=== PATIENT | female | born 1955 | race Caucasian/White ===

== ENCOUNTER 2017-05-06 10:51 | Inpatient (IN) | payer OTHER ==
[~2017-05-06] VITALS: Ht 160 cm; Wt 71.5 kg
[~2017-05-06 10:51] MED LIST: ALBU8.5H3 INH; ALPR0.254 PO; ASPI81TA3 PO; ATOR10TA65 PO; AZIT250T94 PO; BACL10TA PO; BISA10SU75 PR; CETI10CA PO; DOCU-159 PO; HYDR-906 PO; IBUP-1542 PO; OXYC-183 PO; OXYC-209 PO; OXYC-281 PO; OXYC-283 PO; SENN-31 PO; SENN-53 PO; UDROBDM PO
[2017-05-06] MEDS ORDERED: ASPIRIN 325 MG TAB PO STA (14:21)
[2017-05-06 15:04] LABS: BASOPHILS % 0.4 % (0.0-2.0); EOSINOPHILS # 0.2 10^3/ul (0.0-0.5); EOSINOPHILS % 1.8 % (0.0-7.0); HEMATOCRIT 45.8 % (37.0-47.0); HEMOGLOBIN 15.5 g/dl (12.0-16.0); LYMPHOCYTES # 2.1 10^3/ul (0.8-2.9); LYMPHOCYTES % 24.8 % (15.0-51.0); MEAN CORPUSCULAR HEMOGLOBIN 34.4 pg (29.0-33.0); MEAN CORPUSCULAR HGB CONC 33.8 g/dl (32.0-37.0); MEAN CORPUSCULAR VOLUME 101.6 fl (82.0-101.0); MEAN PLATELET VOLUME 9.7 fl (7.4-10.4); MONOCYTE # 0.4 10^3/ul (0.3-0.9); MONOCYTES % 5.2 % (0.0-11.0); NEUTROPHILS % 67.6 % (39.0-77.0); PLATELET COUNT 194 10^3/UL (140-415); RED BLOOD COUNT 4.51 10^6/ul (4.20-5.40); WHITE BLOOD COUNT 8.4 10^3/ul (4.8-10.8)
[2017-05-06 15:23] LABS: CALCIUM 9.1 mg/dl (8.4-10.2); CREATININE 1.02 mg/dl (0.44-1.00); POTASSIUM 5.2 mmol/L (3.5-5.1)
[2017-05-06 15:35] LABS: TROPONIN-I 0.013 ng/ml (0.00-0.12)
[2017-05-06] MEDS ORDERED: KETOROLAC 30 MG INJ IV STA (15:46)
--- NOTE | 2017-05-06 16:12 | RADRPT ---
PROCEDURE: XR Chest. CLINICAL INDICATION: Chest pain TECHNIQUE: AP view of the chest was obtained. COMPARISON: 02/27/2016 FINDINGS: There are atherosclerotic calcifications of the thoracic aorta. The cardiomediastinal silhouette i s within normal limits. No consolidation or pulmonary edema is identified. Nodular opacity again id entified at the left lung base measuring up to 10 mm, without significant change. No pleural effusi on or pneumothorax is identified. IMPRESSION: No evidence of acute cardiopulmonary disease. 10 mm nodular opacity at the left lung base, without significant change. Again, further evaluation be performed with CT. RPTAT: VV .Sandeep Payan MD, MD Date Time Electronically viewed and signed by .Sandeep Payan MD, on 05/06/2017 16:11 .O/
[2017-05-06] MEDS ORDERED: QUET50TA16 PO (16:29)
[2017-05-06] MEDS ORDERED: ALPR2TAB PO (16:29)
--- NOTE | 2017-05-06 16:48 | ERA ---
ER Documentation Chief Complaint Date/Time DATE: 05/06/17 TIME: 16:41 Chief Complaint back of l. shoulder pain rad into lue and chest, sob HPI This is a 61-year-old female with a history of anxiety, chronic sciatic lumbar back pain status post laminectomy, currently ambulatory with walker who is presenting with epigastric pain in conjunction with left paraspinal pain radiating down her left arm into the dorsum of her left hand. She does not endorse any trauma or injury to her neck or arm. She does put groceries away at home, but she does not endorse any heavy lifting. She does feel little anxious about being here, but she does not endorse left sided or midsternal chest pain or trouble breathing. She does not feel sick. She has no fever or chills. She has no headache or vision changes. She does endorse indigestion in the epigastrium since last night. She has had no changes to bowel movements or urination. She has had no focal deficits. ROS All systems reviewed and are negative except as per history of present illness. Medications Home Meds Reported Medications Alprazolam* (Xanax*) 2 Mg Tablet, 2 MG PO BID Y for ANXIETY, TAB 05/06/17 Quetiapine Fumarate* (Seroquel*) 50 Mg Tablet, 50 MG PO DAILY, TAB 05/06/17 Discontinued Reported Medications Sennosides* (Senna Lax*) 8.6 Mg Tablet, 2 TAB PO DAILY, TAB 02/27/16 Oxycodone Hcl-Acetaminophen* (Oxycodone Hcl-Acetaminophen*) 10-325 Mg Tablet, 2 TAB PO Q4H Y for PAIN LEVEL 6-10, TAB 02/27/16 Sennosides-Docusate Sodium ([place]el[place]-Colace) 50-8.6 Mg Tablet, 2 TAB PO DAILY Y for CONSTIPATION, TAB 02/27/16 Docusate Sodium* (Docusate Sodium*) 100 Mg Capsule, 100 MG PO DAILY, #30 CAP 02/27/16 Bisacodyl* (Bisacodyl*) 10 Mg Supp, 10 MG [place] Q24H for CONSTIPATION, SUPP 02/27/16 Baclofen* (Baclofen*) 10 Mg Tablet, 10 MG PO TID, TAB 02/27/16 Alprazolam* (Alprazolam*) 0.25 Mg Tablet, 0.5 MG PO TID Y for ANXIETY, TAB 02/27/16 Discontinued Scripts Hydrocodone/Acetaminophen ([place] 5-325 Tablet) 1 Each Tablet, 1 TAB PO Q6H Y for PAIN, #7 TAB Prov:BENNETT WERNER PA-C 08/13/16 Guaifenesin-Dextromethorphan* (Robitussin* DM) 100MG/10MG/5ML Syrup, 10 ML PO Q6H Y for COUGH for 5 Days, ML Prov:BENNETT WERNER PA-C 08/13/16 Cetirizine Hcl* (Zyrtec*) 10 Mg Capsule, 10 MG PO DAILY, #14 TAB.CHEW Prov:BENNETT WERNER PA-C 08/13/16 Albuterol Sulfate* (Proair HFA*) 8.5 Gm Hfa.aer.ad, 2 PUFF INH Q4, #1 INHALER Prov:BENNETT WERNER PA-C 08/13/16 Azithromycin* (Zithromax*) 250 Mg Tablet, 250 MG PO .ZPACK DIRECTED, #6 TAB TAKE 500 MG (2 TABS) THE FIRST DAY THEN 250 MG (1 TAB) DAYS 2-5 Prov:BENNETT WERNER PA-C 08/13/16 Oxycodone HCl/Acetaminophen (Percocet 10-325 mg Tablet) 1 Each Tablet, 1 EACH PO BID, #15 TAB Prov:BRANDI RODRÍGUEZ PA-C 05/04/16 Ibuprofen* (Motrin*) 600 Mg Tab, 600 MG PO Q6H Y for PAIN AND OR ELEVATED TEMP, #30 TAB Prov:SOBIA RODRIGUEZ NP 04/23/16 Oxycodone Hcl-Acetaminophen* (Percocet*) 7.5-325 Mg Tablet, 1 TAB PO Q4H Y for SEVERE PAIN LEVEL 7-10, #20 TAB Prov:SOBIA RODRIGUEZ NP 04/23/16 Oxycodone Hcl-Acetaminophen* (Percocet*) 5-325 Mg Tablet, 1 TAB PO Q4H Y for PAIN, #10 TAB Prov:BRANDI RODRÍGUEZ PA-C 03/17/16 Atorvastatin Calcium (Atorvastatin Calcium) 10 Mg Tablet, 10 MG PO HS for 14 Days, TAB Prov:LEON MARTINEZ MD 03/01/16 Aspirin (Aspirin) 81 Mg Chew, 81 MG PO DAILY for 10 Days, TAB Prov:LEON MARTINEZ MD 03/01/16 Allergies Allergies: Coded Allergies: No Known Allergy (Unverified , 05/06/17) PMhx/Soc History of Surgery: Yes (LAMINECTOMY FEBRUARY 2016) Anesthesia Reaction: No Hx Neurological Disorder: No Hx Respiratory Disorders: Yes (COPD) Hx Cardiac Disorders: No Hx Psychiatric Problems: No Hx Miscellaneous Medical Probl: No ( pelvis fx, rib fx) Hx Alcohol Use: No Hx Substance Use: No Hx Tobacco Use: Yes Smoking Status: Current every day smoker Physical Exam Vitals Vital Signs Date Time Temp Pulse Resp B/P Pulse Ox O2 Delivery O2 Flow Rate FiO2 05/06/17 17:00 78 20 148/94 96 Room Air 05/06/17 14:45 79 20 115/89 94 05/06/17 10:53 98.4 84 20 128/84 94 Physical Exam Const: NAD Head: Atraumatic Eyes: Normal Conjunctiva ENT: Normal External Ears, Nose and Mouth. Neck: Full range of motion..~ No meningismus. Resp: Clear to auscultation bilaterally Cardio: Regular rate and rhythm, no murmurs Abd: Soft, non tender, non distended. Normal bowel sounds Skin: No petechiae or rashes Back: No midline or flank tenderness Ext: No cyanosis, or edema Neur: Awake and alert Psych: Anxious Result Diagram: 05/06/17 1445 05/06/17 1445 Results 24 hrs Laboratory Tests Test 05/06/17 14:45 White Blood Count 8.410^3/ul Red Blood Count 4.5110^6/ul Hemoglobin 15.5g/dl Hematocrit 45.8% Mean Corpuscular Volume 101.6fl Mean Corpuscular Hemoglobin 34.4pg Mean Corpuscular Hemoglobin Concent 33.8g/dl Red Cell Distribution Width 13.0% Platelet Count 48316^3/UL Mean Platelet Volume 9.7fl Neutrophils % 67.6% Lymphocytes % 24.8% Monocytes % 5.2% Eosinophils % 1.8% Basophils % 0.4% Nucleated Red Blood Cells % 0.0/100WBC Neutrophils # (Manual) 5.710^3/ul Lymphocytes # 2.110^3/ul Monocytes # 0.410^3/ul Eosinophils # 0.210^3/ul Basophils # 0.010^3/ul Nucleated Red Blood Cells # 0.010^3/ul Sodium Level 145mmol/L Potassium Level 5.2mmol/L Chloride Level 104mmol/L Carbon Dioxide Level 27mmol/L Anion Gap 19 Blood Urea Nitrogen 14mg/dl Creatinine 1.02mg/dl Glucose Level 89mg/dl Calcium Level 9.1mg/dl Troponin I 0.013ng/ml Current Medications Medications (Trade) Dose Ordered Sig/Chun Route PRN Reason Start Time Stop Time Status Last Admin Dose Admin Aspirin (Aspirin) 325 mg ONCE STAT PO 05/06/17 14:21 05/06/17 14:22 DC 05/06/17 14:39 Ketorolac Tromethamine (Toradol) 30 mg ONCE STAT IV 05/06/17 15:46 05/06/17 15:47 DC 05/06/17 16:26 Morphine Sulfate (morphine) 2 mg ONCE ONCE IV 05/06/17 17:30 05/06/17 17:31 DC 05/06/17 17:29 Procedures/MDM The patient's presenting with left shoulder and arm pain since yesterday. She does not endorse any trauma or injury or extra exertion. There is no historical evidence of a muscle strain. The patient does have a history of spinal stenosis, but not typically in her neck. This is a possibility, but it would be atypical to, I am as acutely as it did without an event. She could have tweaked it at night as a possibility. That said, the patient also endorses epigastric pain, and in her age group, there is a possibility of atypical chest pain. A cardiac workup will be performed. Patient's blood work was obtained and reviewed. The patient's CBC is unremarkable. The patient's BMP is likewise unremarkable. The patient's troponin is indeterminate at 0.013. Her chest xray was reviewed by the radiologist as follows: PROCEDURE: XR Chest. CLINICAL INDICATION: Chest pain TECHNIQUE: AP view of the chest was obtained. COMPARISON: 02/27/2016 FINDINGS: There are atherosclerotic calcifications of the thoracic aorta. The cardiomediastinal silhouette is within normal limits. No consolidation or pulmonary edema is identified. Nodular opacity again identified at the left lung base measuring up to 10 mm, without significant change. No pleural effusion or pneumothorax is identified. IMPRESSION: No evidence of acute cardiopulmonary disease. 10 mm nodular opacity at the left lung base, without significant change. Again, further evaluation be performed with CT. .Sandeep Payan MD, MD Date Time Electronically viewed and signed by .Sandeep Payan MD, on 05/06/2017 16:11 That said, the patient is also describing new epigastric pain radiating upwards. She is 61 with a history of heart attack in her father. She has nonspecific repolarization abnormalities on her EKG and her troponin is just above normal. I give her heart score at 4, which places her at moderate risk. She has never had a stress test before. I believe she would benefit from admission to the hospital for a chest pain workup. She will require serial troponins and EKGs and likely a stress test in the morning. She was given Toradol and fentanyl in the emergency department for her pain initially. After the indeterminate troponin, she was also given aspirin. Departure Diagnosis: Primary Impression: Shoulder pain Additional Impressions: Epigastric pain Nonspecific ST-T wave electrocardiographic changes Elevated troponin I level CHRISTOPHER HERNANDES MD May 06, 2017 16:48
[2017-05-06] MEDS ORDERED: morphine 2 MG INJ IV ONE (17:30)
[2017-05-06] MEDS ORDERED: ACETAMINOPHEN 325 MG TAB PO PRN (18:30)
[2017-05-06] MEDS ORDERED: ONDANSETRON 4 MG INJ IV PRN ×2 (18:30→21:00)
[2017-05-06 20:10] VITALS: Ht 160 cm; Wt 71.5 kg
[2017-05-06 20:39] VITALS: BP 138/86; RESP 18
[2017-05-06] MEDS: morphine 4 MG/ML VIAL IV PRN (20:56)
[2017-05-06] MEDS ORDERED: ALPRAZOLAM 1 MG TAB PO PRN (21:00)
[2017-05-06 21:39] VITALS: PULSE 60
[2017-05-06 23:02] LABS: CREATINE KINASE 40 IU/L (23-200)
[2017-05-06 23:15] LABS: CK-MB 0.67 ng/ml (0.0-2.4); TROPONIN-I < 0.012 ng/ml (0.00-0.12)
[2017-05-07] VITALS (12 sets, daily range): BP systolic 98–117; BP diastolic 53–65; PULSE 64–85; RESP 17–18
[2017-05-07] MEDS: HYDROCODONE/APAP (5/325) TAB PO PRN ×3 (00:23→15:49)
[2017-05-07] MEDS: morphine 4 MG/ML VIAL IV PRN ×5 (01:19→23:08)
[2017-05-07 02:49] LABS: CREATINE KINASE 45 IU/L (23-200)
[2017-05-07 03:02] LABS: CK-MB 0.82 ng/ml (0.0-2.4)
[2017-05-07 03:06] LABS: TROPONIN-I < 0.012 ng/ml (0.00-0.12)
--- NOTE | 2017-05-07 07:20 | HP ---
Date/Time of Note Date/Time of Note DATE: 05/07/17 TIME: 07:11 Assessment/Plan VTE Prophylaxis VTE Prophylaxis Intervention: SCD's Lines/Catheters [facility] Saline Lock Urinary Cath still in place: No Assessment/Plan Assessment/Plan 1. Chronic back pain -Patient has a history of laminectomy -Pain management 2. Right shoulder pain -This is radiating from her back pain. Suspecting any fracture or dislocation -Pain management 3. Mild CKD: Stable -Avoid nephrotoxins 4. Left lower lung nodules, measuring 10 mm -This is unchanged since last year. Will consider CT chest 5. Anxiety -We will give antianxiety medication as needed 6. Mild hypernatremia and hyperkalemia -Correct as needed HPI/ROS Admit Date/Time Admit Date/Time May 06, 2017 at 18:26 Hx of Present Illness This is a 61-year-old female with a history of COPD, anxiety, mild CKD, chronic back pain with a history of laminectomy who presented to the emergency department complaining of back pain with radiation to her right shoulder shoulder pain and epigastric abdominal pain. She also complains of back pain. Denied chest pain, shortness of breath, fever, chills, nausea/vomiting or diarrhea. Patient's main concern is pain management for her back pain which radiates to her shoulder area. She presented to the ER, vitals were stable. Labs shows a sodium of 145, potassium 5.2, creatinine 1.02. Chest x-ray shows a 10 mm nodular opacity in the left lung base without significant change from PS chest x-ray 2015. . PMH/Family/Social Social History Smoking Status: Current every day smoker Exam/Review of Systems Vital Signs Vitals Vital Signs Date Time Temp Pulse Resp B/P Pulse Ox O2 Delivery O2 Flow Rate FiO2 05/07/17 04:06 69 05/07/17 04:00 98.9 17 117/65 90 05/06/17 17:00 Room Air Intake and Output 05/06/17 05/06/17 05/07/17 15:00 23:00 07:00 Intake Total 700 ml Balance 700 ml Exam Constitutional: other (Patient seems agitated.) Head: atraumatic, normocephalic Eyes: EOMI, PERRL Respiratory: clear to auscultation, normal air movement Cardiovascular: nl pulses, regular rate and rhythm Gastrointestinal: soft, tender Musculoskeletal: other (Tenderness, right mid back) Labs Result Diagram: 05/06/17 1445 05/06/17 1445 Medications Medications Current Medications Alprazolam (Xanax) 2 mg BID PRN PO ANXIETY; Start 05/06/17 at 21:00 Quetiapine Fumarate (Seroquel) 50 mg DAILY PO ; Start 05/07/17 at 09:00 Morphine Sulfate (morphine) 4 mg Q4H PRN IV SEVERE PAIN LEVEL 7-10 Last administered on 05/07/17 05:44; Admin Dose 4 MG; Start 05/06/17 at 21:00 Ondansetron HCl (Zofran Inj) 4 mg Q6H PRN IV NAUSEA AND/OR VOMITING; Start at 21:00 Heparin Sodium (Porcine) (Heparin (5000 Units/0.5 ml)) 5,000 unit BID SC ; Start 05/07/17 at 09:00 Acetaminophen/ Hydrocodone Bitart ([place] (5/325)) 1 tab Q6H PRN PO PAIN LEVEL 4 -6 Last administered on 05/07/17 00:23; Admin Dose 1 TAB; Start 05/07/17 at 00: 30 SRAVAN GAUTHIER MD May 07, 2017 07:20
[2017-05-07 08:13] LABS: BASOPHILS % 0.3 % (0.0-2.0); EOSINOPHILS # 0.2 10^3/ul (0.0-0.5); EOSINOPHILS % 2.8 % (0.0-7.0); HEMOGLOBIN 14.2 g/dl (12.0-16.0); LYMPHOCYTES # 2.3 10^3/ul (0.8-2.9); LYMPHOCYTES % 36.9 % (15.0-51.0); MEAN CORPUSCULAR HEMOGLOBIN 33.7 pg (29.0-33.0); MEAN CORPUSCULAR VOLUME 102.1 fl (82.0-101.0); MEAN PLATELET VOLUME 9.5 fl (7.4-10.4); MONOCYTE # 0.3 10^3/ul (0.3-0.9); MONOCYTES % 5.5 % (0.0-11.0); NEUTROPHILS % 54.2 % (39.0-77.0); PLATELET COUNT 165 10^3/UL (140-415); RED BLOOD COUNT 4.21 10^6/ul (4.20-5.40); RED CELL DISTRIBUTION WIDTH 12.9 % (11.5-14.5); WHITE BLOOD COUNT 6.1 10^3/ul (4.8-10.8)
[2017-05-07] MEDS: QUETIAPINE 25 MG TAB PO SCH (08:46)
[2017-05-07] MEDS: HEPARIN 5,000 UNIT/0.5 ML VIAL SC SCH ×2 (08:51→20:39)
[2017-05-07 08:57] LABS: ALBUMIN/GLOBULIN RATIO 1.2; BILIRUBIN,INDIRECT 0.2 mg/dl (0-1.1); BILIRUBIN,TOTAL 0.2 mg/dl (0.2-1.3); CALCIUM 8.4 mg/dl (8.4-10.2); CREATININE 1.14 mg/dl (0.44-1.00); POTASSIUM 3.8 mmol/L (3.5-5.1); TOTAL PROTEIN 5.5 g/dl (6.1-8.1)
[2017-05-07] MEDS ORDERED: IBUPROFEN 800 MG TAB PO PRN (15:00)
--- NOTE | 2017-05-07 15:21 | PN ---
Date/Time of Note Date/Time of Note DATE: 05/07/17 TIME: 15:17 Assessment/Plan VTE Prophylaxis VTE Prophylaxis Intervention: LMWH Lines/Catheters IV Catheter Type (from Nrs): Saline Lock Urinary Cath still in place: No Assessment/Plan Chief Complaint/Hosp Course S- According to staff, good sleep w meds. when aroused from deep sleep, quick to ask for pain meds. O- vss PE No pallor JVD Regular no murmur rub gallop CTA B possibly mild tender to reproducible exam Benign No edema; slr 45 Assessment and plan 1. Atypical chest pain. Rule out ACS. Home 2. Chronic back pain. Obtain LS spine x-ray 3. Pain seeking behavior? 4. Tobacco abuse, offered patch 5. Pulmonary nodule. Continue surveillance. Repeat CT in 6 months Problems: Exam/Review of Systems Vital Signs Vitals Vital Signs Date Time Temp Pulse Resp B/P Pulse Ox O2 Delivery O2 Flow Rate FiO2 05/07/17 12:46 98.0 74 18 104/57 91 05/06/17 17:00 Room Air Intake and Output 05/06/17 05/06/17 05/07/17 14:59 22:59 06:59 Intake Total 700 ml Balance 700 ml Results Result Diagram: 05/07/17 0735 05/07/17 0735 Results 24 hrs Laboratory Tests Test 05/06/17 22:00 05/07/17 02:24 05/07/17 07:35 Creatine Kinase 40 45 Creatine Kinase Index 1.7 1.8 Creatinine Kinase MB (Mass) 0.67 0.82 Troponin I < 0.012 < 0.012 White Blood Count 6.1 # Red Blood Count 4.21 Hemoglobin 14.2 Hematocrit 43.0 Mean Corpuscular Volume 102.1 H Mean Corpuscular Hemoglobin 33.7 H Mean Corpuscular Hemoglobin Concent 33.0 Red Cell Distribution Width 12.9 Platelet Count 165 Mean Platelet Volume 9.5 Neutrophils % 54.2 Lymphocytes % 36.9 Monocytes % 5.5 Eosinophils % 2.8 Basophils % 0.3 Nucleated Red Blood Cells % 0.0 Neutrophils # (Manual) 3.3 Lymphocytes # 2.3 Monocytes # 0.3 Eosinophils # 0.2 Basophils # 0.0 Nucleated Red Blood Cells # 0.0 Sodium Level 144 Potassium Level 3.8 Chloride Level 105 Carbon Dioxide Level 27 Anion Gap 16 Blood Urea Nitrogen 17 Creatinine 1.14 H Glucose Level 93 Calcium Level 8.4 Total Bilirubin 0.2 Direct Bilirubin 0.00 Indirect Bilirubin 0.2 Aspartate Amino Transf (AST/SGOT) 19 Alanine Aminotransferase (ALT/SGPT) 24 Alkaline Phosphatase 68 Total Protein 5.5 L Albumin 3.0 L Globulin 2.50 Albumin/Globulin Ratio 1.20 Medications Medications Current Medications Alprazolam (Xanax) 2 mg BID PRN PO ANXIETY Last administered on 05/07/17 08:47 ; Admin Dose 2 MG; Start 05/06/17 at 21:00 Quetiapine Fumarate (Seroquel) 50 mg DAILY PO Last administered on 05/07/17 08 :46; Admin Dose 50 MG; Start 05/07/17 at 09:00 Morphine Sulfate (morphine) 4 mg Q4H PRN IV SEVERE PAIN LEVEL 7-10 Last administered on 05/07/17 13:18; Admin Dose 4 MG; Start 05/06/17 at 21:00 Ondansetron HCl (Zofran Inj) 4 mg Q6H PRN IV NAUSEA AND/OR VOMITING; Start at 21:00 Heparin Sodium (Porcine) (Heparin (5000 Units/0.5 ml)) 5,000 unit BID SC Last administered on 05/07/17 08:51; Admin Dose 5,000 UNIT; Start 05/07/17 at 09:00 Acetaminophen/ Hydrocodone Bitart ([place] (5/325)) 1 tab Q6H PRN PO PAIN LEVEL 4 -6 Last administered on 05/07/17 08:48; Admin Dose 1 TAB; Start 05/07/17 at 00: 30 Ibuprofen (Motrin) 800 mg Q6H PRN PO MODERATE PAIN LEVEL 4-6; Start 05/07/17 at 15:00 Nicotine (Nicoderm 14 Mg/ 24hr) 1 patch DAILY TRANSDERM ; Start 05/08/17 at 09: 00 ELADIA DAWSON MD May 07, 2017 15:21
--- NOTE | 2017-05-07 16:54 | RADRPT ---
PROCEDURE: XR Lumbar Spine. CLINICAL INDICATION: Back pain. TECHNIQUE: Three views. AP, lateral and cone-down lateral view of the lumbar spine were obtained. COMPARISON: CT scan of the lumbar spine dated 04/23/2016. FINDINGS: Surgical clips are present in the right upper quadrant of the abdomen. There has been prior lumbar spine surgery with pedicle screws and connecting rods at L3 - L4 - L5 - S1. An intervertebral cage is present at L5-S1. Alignment is satisfactory. There is no fracture. There is no lytic or blastic lesion. Small osteophytes are present throughout. Calcification is present in the aorta consistent with atherosclerosis. IMPRESSION: 1. Satisfactory postoperative appearance of the lumbar spine. 2. Prior right upper quadrant abdomen surgery. 3. Atherosclerosis. RPTAT: QQ .Bob House MD, Date Time Electronically viewed and signed by .Bob House MD, on 05/07/2017 16:53 .R/
[2017-05-08] VITALS (9 sets, daily range): BP systolic 93–105; BP diastolic 52–58; PULSE 70–71; RESP 17–18
[2017-05-08] MEDS: morphine 4 MG/ML VIAL IV PRN ×2 (05:11→10:47)
[2017-05-08 07:34] LABS: BASOPHILS % 0.5 % (0.0-2.0); EOSINOPHILS # 0.2 10^3/ul (0.0-0.5); EOSINOPHILS % 3.2 % (0.0-7.0); HEMATOCRIT 43.1 % (37.0-47.0); HEMOGLOBIN 14.2 g/dl (12.0-16.0); LYMPHOCYTES # 2.3 10^3/ul (0.8-2.9); LYMPHOCYTES % 37.7 % (15.0-51.0); MEAN CORPUSCULAR HEMOGLOBIN 34.2 pg (29.0-33.0); MEAN CORPUSCULAR HGB CONC 32.9 g/dl (32.0-37.0); MEAN CORPUSCULAR VOLUME 103.9 fl (82.0-101.0); MEAN PLATELET VOLUME 9.7 fl (7.4-10.4); MONOCYTE # 0.4 10^3/ul (0.3-0.9); MONOCYTES % 5.6 % (0.0-11.0); NEUTROPHILS % 52.8 % (39.0-77.0); PLATELET COUNT 170 10^3/UL (140-415); RED BLOOD COUNT 4.15 10^6/ul (4.20-5.40); RED CELL DISTRIBUTION WIDTH 12.6 % (11.5-14.5); WHITE BLOOD COUNT 6.2 10^3/ul (4.8-10.8)
[2017-05-08 07:48] LABS: ALBUMIN 2.9 g/dl (3.3-4.9); ALBUMIN/GLOBULIN RATIO 1.11; BILIRUBIN,INDIRECT 0.2 mg/dl (0-1.1); BILIRUBIN,TOTAL 0.2 mg/dl (0.2-1.3); CALCIUM 8.6 mg/dl (8.4-10.2); CREATININE 1.08 mg/dl (0.44-1.00); MAGNESIUM 1.7 mg/dl (1.7-2.5); PHOSPHORUS 4.8 mg/dl (2.5-4.9); POTASSIUM 4.7 mmol/L (3.5-5.1); TOTAL PROTEIN 5.5 g/dl (6.1-8.1)
[2017-05-08 08:14] LABS: THYROID STIMULATING HORMONE 6.05 MIU/L (0.465-4.680)
[2017-05-08] MEDS: HEPARIN 5,000 UNIT/0.5 ML VIAL SC SCH (08:26)
[2017-05-08] MEDS: QUETIAPINE 25 MG TAB PO SCH (08:27)
[2017-05-08] MEDS ORDERED: NICOTINE (14 MG/24 HR) PATCH TRANSDERM SCH (09:00)
--- NOTE | 2017-05-08 13:09 | DS ---
Date/Time of Note Date/Time of Note DATE: 05/08/17 TIME: 13:07 Discharge Summary Admission/Discharge Info Admit Date/Time May 06, 2017 at 18:26 Discharge Date/Time Discharge Diagnosis Back pain Tobacco Shoulder pain Clinical hypothyroidism IMPRESSION: 1. Satisfactory postoperative appearance of the lumbar spine. 2. Prior right upper quadrant abdomen surgery. 3. Atherosclerosis. RPTAT: QQ .Bob House MD, MD Date Time Electronically viewed and signed by .Bob House MD, on 05/07/2017 Patient Condition: Stable Hx of Present Illness This is a 61-year-old female with a history of COPD, anxiety, mild CKD, chronic back pain with a history of laminectomy who presented to the emergency department complaining of back pain with radiation to her right shoulder shoulder pain and epigastric abdominal pain. She also complains of back pain. Denied chest pain, shortness of breath, fever, chills, nausea/vomiting or diarrhea. Patient's main concern is pain management for her back pain which radiates to her shoulder area. She presented to the ER, vitals were stable. Labs shows a sodium of 145, potassium 5.2, creatinine 1.02. Chest x-ray shows a 10 mm nodular opacity in the left lung base without significant change from PS chest x-ray 2016. . Hospital Course S- According to staff, good sleep w meds. when aroused from deep sleep, quick to ask for pain meds. O- vss PE No pallor JVD Regular no murmur rub gallop CTA B possibly mild tender to reproducible exam Benign No edema; slr 45 Assessment and plan 1. Atypical chest pain. Rule out ACS. Home 2. Chronic back pain. Obtain LS spine x-ray 3. Pain seeking behavior? 4. Tobacco abuse, offered patch 5. Pulmonary nodule. Continue surveillance. Repeat CT in 6 months Home Meds Reported Medications Alprazolam* (Xanax*) 2 Mg Tablet, 2 MG PO BID Y for ANXIETY, TAB 05/06/17 Quetiapine Fumarate* (Seroquel*) 50 Mg Tablet, 50 MG PO DAILY, TAB 05/06/17 Discontinued Reported Medications Sennosides* (Senna Lax*) 8.6 Mg Tablet, 2 TAB PO DAILY, TAB 02/27/16 Oxycodone Hcl-Acetaminophen* (Oxycodone Hcl-Acetaminophen*) 10-325 Mg Tablet, 2 TAB PO Q4H Y for PAIN LEVEL 6-10, TAB 02/27/16 Sennosides-Docusate Sodium ([place]el[place]-Colace) 50-8.6 Mg Tablet, 2 TAB PO DAILY Y for CONSTIPATION, TAB 02/27/16 Docusate Sodium* (Docusate Sodium*) 100 Mg Capsule, 100 MG PO DAILY, #30 CAP 02/27/16 Bisacodyl* (Bisacodyl*) 10 Mg Supp, 10 MG RI Q24H for CONSTIPATION, SUPP 02/27/16 Baclofen* (Baclofen*) 10 Mg Tablet, 10 MG PO TID, TAB 02/27/16 Alprazolam* (Alprazolam*) 0.25 Mg Tablet, 0.5 MG PO TID Y for ANXIETY, TAB 02/27/16 Discontinued Scripts Hydrocodone/Acetaminophen ([place] 5-325 Tablet) 1 Each Tablet, 1 TAB PO Q6H Y for PAIN, #7 TAB Prov:BENNETT WERNER PA-C 08/13/16 Guaifenesin-Dextromethorphan* (Robitussin* DM) 100MG/10MG/5ML Syrup, 10 ML PO Q6H Y for COUGH for 5 Days, ML Prov:BENNETT WERNER PA-C 08/13/16 Cetirizine Hcl* (Zyrtec*) 10 Mg Capsule, 10 MG PO DAILY, #14 TAB.CHEW Prov:BENNETT WERNER PA-C 08/13/16 Albuterol Sulfate* (Proair HFA*) 8.5 Gm Hfa.aer.ad, 2 PUFF INH Q4, #1 INHALER Prov:BENNETT WERNER PA-C 08/13/16 Azithromycin* (Zithromax*) 250 Mg Tablet, 250 MG PO .EVELIA DIRECTED, #6 TAB TAKE 500 MG (2 TABS) THE FIRST DAY THEN 250 MG (1 TAB) DAYS 2-5 Prov:BENNETT WERNER PA-C 08/13/16 Oxycodone HCl/Acetaminophen (Percocet 10-325 mg Tablet) 1 Each Tablet, 1 EACH PO BID, #15 TAB Prov:BRANDI RODRÍGUEZ PA-C 05/04/16 Ibuprofen* (Motrin*) 600 Mg Tab, 600 MG PO Q6H Y for PAIN AND OR ELEVATED TEMP, #30 TAB Prov:SOBIA RODRIGUEZ NP 04/23/16 Oxycodone Hcl-Acetaminophen* (Percocet*) 7.5-325 Mg Tablet, 1 TAB PO Q4H Y for SEVERE PAIN LEVEL 7-10, #20 TAB Prov:SOBIA RODRIGUEZ TELEGRAPH EDITOR 04/23/16 Oxycodone Hcl-Acetaminophen* (Percocet*) 5-325 Mg Tablet, 1 TAB PO Q4H Y for PAIN, #10 TAB Prov:BRANDI RODRÍGUEZ PA-C 03/17/16 Atorvastatin Calcium (Atorvastatin Calcium) 10 Mg Tablet, 10 MG PO HS for 14 Days, TAB Prov:LEON MARTINEZ MD 03/01/16 Aspirin (Aspirin) 81 Mg Chew, 81 MG PO DAILY for 10 Days, TAB Prov:LEON MARTINEZ MD 03/01/16 Primary Care Provider Not On Staff Doctor Pending Labs Laboratory Tests Test 05/08/17 06:26 05/08/17 06:29 Sodium Level 142mmol/L (135-144) Potassium Level 4.7mmol/L (3.5-5.1) Chloride Level 102mmol/L (97-110) Carbon Dioxide Level 31mmol/L (21-31) Anion Gap 14 (8-16) Blood Urea Nitrogen 19mg/dl (7-20) Creatinine 1.08mg/dl (0.44-1.00) Glucose Level 91mg/dl (70-220) Calcium Level 8.6mg/dl (8.4-10.2) Phosphorus Level 4.8mg/dl (2.5-4.9) Magnesium Level 1.7mg/dl (1.7-2.5) Total Bilirubin 0.2mg/dl (0.2-1.3) Direct Bilirubin 0.00mg/dl (0.00-0.20) Indirect Bilirubin 0.2mg/dl (0-1.1) Aspartate Amino Transf (AST/SGOT) 29IU/L (15-46) Alanine Aminotransferase (ALT/SGPT) 31IU/L (13-69) Alkaline Phosphatase 69IU/L (42-121) Total Protein 5.5g/dl (6.1-8.1) Albumin 2.9g/dl (3.3-4.9) Globulin 2.60g/dl (1.3-3.2) Albumin/Globulin Ratio 1.11 Lipase 49U/L (23-300) Thyroid Stimulating Hormone (TSH) 6.050MIU/L (0.465-4.680) White Blood Count 6.210^3/ul (4.8-10.8) Red Blood Count 4.1510^6/ul (4.20-5.40) Hemoglobin 14.2g/dl (12.0-16.0) Hematocrit 43.1% (37.0-47.0) Mean Corpuscular Volume 103.9fl (82.0-101.0) Mean Corpuscular Hemoglobin 34.2pg (29.0-33.0) Mean Corpuscular Hemoglobin Concent 32.9g/dl (32.0-37.0) Red Cell Distribution Width 12.6% (11.5-14.5) Platelet Count 68365^3/UL (140-415) Mean Platelet Volume 9.7fl (7.4-10.4) Neutrophils % 52.8% (39.0-77.0) Lymphocytes % 37.7% (15.0-51.0) Monocytes % 5.6% (0.0-11.0) Eosinophils % 3.2% (0.0-7.0) Basophils % 0.5% (0.0-2.0) Nucleated Red Blood Cells % 0.0/100WBC (0.0-0.0) Neutrophils # (Manual) 3.310^3/ul (1.7-7.5) Lymphocytes # 2.310^3/ul (0.8-2.9) Monocytes # 0.410^3/ul (0.3-0.9) Eosinophils # 0.210^3/ul (0.0-0.5) Basophils # 0.010^3/ul (0.0-0.1) Nucleated Red Blood Cells # 0.010^3/ul (0.0-0.0) ELADIA DAWSON MD May 08, 2017 13:09
--- NOTE | 2017-05-08 13:16 | DS ---
Date/Time of Note Date/Time of Note DATE: 05/08/17 TIME: 13:09 Discharge Summary Admission/Discharge Info Admit Date/Time May 06, 2017 at 18:26 Discharge Date/Time Discharge Diagnosis Back pain Chest pain Left shoulder pain Tobacco abuse Pulmonary nodule Patient Condition: Stable Procedures LS Spine x-ray IMPRESSION: 1. Satisfactory postoperative appearance of the lumbar spine. 2. Prior right upper quadrant abdomen surgery. 3. Atherosclerosis. .Bob House MD, MD Date Time Electronically viewed and signed by .Bob House MD, MD on 05/07/2017 Hx of Present Illness This is a 61-year-old female with a history of COPD, anxiety, mild CKD, chronic back pain with a history of laminectomy who presented to the emergency department complaining of back pain with radiation to her right shoulder shoulder pain and epigastric abdominal pain. She also complains of back pain. Denied chest pain, shortness of breath, fever, chills, nausea/vomiting or diarrhea. Patient's main concern is pain management for her back pain which radiates to her shoulder area. She presented to the ER, vitals were stable. Labs shows a sodium of 145, potassium 5.2, creatinine 1.02. Chest x-ray shows a 10 mm nodular opacity in the left lung base without significant change from PS chest x-ray 2016. . Hospital Course Evaluated managed for atypical chest pain. No evidence of arrhythmias abnormal troponin or acute coronary syndrome. Chest x-ray negative for any acute intra- cardiothoracic process. Patient is stable and fit for discharge. She has multiple complaints even back pain. She has no incontinence weight loss warning signs fever. Straight leg raising test above 45. Reflexes diminished but symmetrical bilaterally. Continue conservative management. She may follow-up with her usual neurologist/neurosurgeon as an outpatient. Additionally had left shoulder pain. Range of motion is intact no local warmth erythema. May refer and see an orthopedic surgeon down the line. She agrees that she wants to try conservative management at this time. S- according to staff, good sleep w meds. when aroused from deep sleep, quick to ask for pain meds. O- vss PE No pallor JVD Reg no murmur rub gallop CTAB; possibly mild tender to reproducible exam Benign No edema; slr 45 Assessment and plan 1. Atypical chest pain. no ACS. Home 2. Chronic back pain. LS spine-intact aligned on x-ray 3. Pain seeking behavior? 4. Tobacco abuse, offered patch/counseling 5. Pulmonary nodule. Continue surveillance. CT done today. Repeat CT in 6 months Home Meds Reported Medications Alprazolam* (Xanax*) 2 Mg Tablet, 2 MG PO BID Y for ANXIETY, TAB 05/06/17 Quetiapine Fumarate* (Seroquel*) 50 Mg Tablet, 50 MG PO DAILY, TAB 05/06/17 Discontinued Reported Medications Sennosides* (Senna Lax*) 8.6 Mg Tablet, 2 TAB PO DAILY, TAB 02/27/16 Oxycodone Hcl-Acetaminophen* (Oxycodone Hcl-Acetaminophen*) 10-325 Mg Tablet, 2 TAB PO Q4H Y for PAIN LEVEL 6-10, TAB 02/27/16 Sennosides-Docusate Sodium ([place]elley-Colace) 50-8.6 Mg Tablet, 2 TAB PO DAILY Y for CONSTIPATION, TAB 02/27/16 Docusate Sodium* (Docusate Sodium*) 100 Mg Capsule, 100 MG PO DAILY, #30 CAP 02/27/16 Bisacodyl* (Bisacodyl*) 10 Mg Supp, 10 MG MO Q24H for CONSTIPATION, SUPP 02/27/16 Baclofen* (Baclofen*) 10 Mg Tablet, 10 MG PO TID, TAB 02/27/16 Alprazolam* (Alprazolam*) 0.25 Mg Tablet, 0.5 MG PO TID Y for ANXIETY, TAB 02/27/16 Discontinued Scripts Hydrocodone/Acetaminophen ([place] 5-325 Tablet) 1 Each Tablet, 1 TAB PO Q6H Y for PAIN, #7 TAB Prov:BENNETT WERNER PA-C 08/13/16 Guaifenesin-Dextromethorphan* (Robitussin* DM) 100MG/10MG/5ML Syrup, 10 ML PO Q6H Y for COUGH for 5 Days, ML Prov:BENNETT WERNER PA-C 08/13/16 Cetirizine Hcl* (Zyrtec*) 10 Mg Capsule, 10 MG PO DAILY, #14 TAB.CHEW Prov:BENNETT WERNER PA-C 08/13/16 Albuterol Sulfate* (Proair HFA*) 8.5 Gm Hfa.aer.ad, 2 PUFF INH Q4, #1 INHALER Prov:BENNETT WERNER PA-C 08/13/16 Azithromycin* (Zithromax*) 250 Mg Tablet, 250 MG PO .CharuPACK DIRECTED, #6 TAB TAKE 500 MG (2 TABS) THE FIRST DAY THEN 250 MG (1 TAB) DAYS 2-5 Prov:BENNETT WERNER PA-C 08/13/16 Oxycodone HCl/Acetaminophen (Percocet 10-325 mg Tablet) 1 Each Tablet, 1 EACH PO BID, #15 TAB Prov:BRANDI RODRÍGUEZ PA-C 05/04/16 Ibuprofen* (Motrin*) 600 Mg Tab, 600 MG PO Q6H Y for PAIN AND OR ELEVATED TEMP, #30 TAB Prov:SOBIA RODRIGUEZ NP 04/23/16 Oxycodone Hcl-Acetaminophen* (Percocet*) 7.5-325 Mg Tablet, 1 TAB PO Q4H Y for SEVERE PAIN LEVEL 7-10, #20 TAB Prov:SOBIA RODRIGUEZ NP 04/23/16 Oxycodone Hcl-Acetaminophen* (Percocet*) 5-325 Mg Tablet, 1 TAB PO Q4H Y for PAIN, #10 TAB Prov:BRANDI RODRÍGUEZ PA-C 03/17/16 Atorvastatin Calcium (Atorvastatin Calcium) 10 Mg Tablet, 10 MG PO HS for 14 Days, TAB Prov:LEON MARTINEZ MD 03/01/16 Aspirin (Aspirin) 81 Mg Chew, 81 MG PO DAILY for 10 Days, TAB Prov:LEON MARTINEZ MD 03/01/16 Follow-up Plan PCP 1wk Usual Neurologist/ Neurosurgeon 1 wk. Primary Care Provider Not On Staff Doctor Pending Labs Laboratory Tests Test 05/08/17 06:26 05/08/17 06:29 Sodium Level 142mmol/L (135-144) Potassium Level 4.7mmol/L (3.5-5.1) Chloride Level 102mmol/L (97-110) Carbon Dioxide Level 31mmol/L (21-31) Anion Gap 14 (8-16) Blood Urea Nitrogen 19mg/dl (7-20) Creatinine 1.08mg/dl (0.44-1.00) Glucose Level 91mg/dl (70-220) Calcium Level 8.6mg/dl (8.4-10.2) Phosphorus Level 4.8mg/dl (2.5-4.9) Magnesium Level 1.7mg/dl (1.7-2.5) Total Bilirubin 0.2mg/dl (0.2-1.3) Direct Bilirubin 0.00mg/dl (0.00-0.20) Indirect Bilirubin 0.2mg/dl (0-1.1) Aspartate Amino Transf (AST/SGOT) 29IU/L (15-46) Alanine Aminotransferase (ALT/SGPT) 31IU/L (13-69) Alkaline Phosphatase 69IU/L (42-121) Total Protein 5.5g/dl (6.1-8.1) Albumin 2.9g/dl (3.3-4.9) Globulin 2.60g/dl (1.3-3.2) Albumin/Globulin Ratio 1.11 Lipase 49U/L (23-300) Thyroid Stimulating Hormone (TSH) 6.050MIU/L (0.465-4.680) White Blood Count 6.210^3/ul (4.8-10.8) Red Blood Count 4.1510^6/ul (4.20-5.40) Hemoglobin 14.2g/dl (12.0-16.0) Hematocrit 43.1% (37.0-47.0) Mean Corpuscular Volume 103.9fl (82.0-101.0) Mean Corpuscular Hemoglobin 34.2pg (29.0-33.0) Mean Corpuscular Hemoglobin Concent 32.9g/dl (32.0-37.0) Red Cell Distribution Width 12.6% (11.5-14.5) Platelet Count 85913^3/UL (140-415) Mean Platelet Volume 9.7fl (7.4-10.4) Neutrophils % 52.8% (39.0-77.0) Lymphocytes % 37.7% (15.0-51.0) Monocytes % 5.6% (0.0-11.0) Eosinophils % 3.2% (0.0-7.0) Basophils % 0.5% (0.0-2.0) Nucleated Red Blood Cells % 0.0/100WBC (0.0-0.0) Neutrophils # (Manual) 3.310^3/ul (1.7-7.5) Lymphocytes # 2.310^3/ul (0.8-2.9) Monocytes # 0.410^3/ul (0.3-0.9) Eosinophils # 0.210^3/ul (0.0-0.5) Basophils # 0.010^3/ul (0.0-0.1) Nucleated Red Blood Cells # 0.010^3/ul (0.0-0.0) ELADIA DAWSON MD May 08, 2017 13:16
--- NOTE | 2017-05-08 13:25 | PDOCDIS ---
Discharge Instructions DIAGNOSIS Discharge Diagnosis Back pain Chest pain Left shoulder pain Tobacco abuse Pulmonary nodule CONDITION Patient Condition: Stable HOME CARE INSTRUCTIONS: Special Diet: regular ACTIVITY: Activity Restrictions: Slowly Increase Activity Avoid heavy lifting Do not Drive FOLLOW UP/APPOINTMENTS Follow-up Plan primary -1wk OTHER ORDERS: Other Orders: avoid constipation. re-start outpatient PT. schedule appt with regular back specialist if pain continues. SCHOOL/WORK RELEASE May return to School/Work on: May 08, 2017 ELADIA DAWSON MD May 08, 2017 13:25
[2017-05-08] MEDS ORDERED: Nicotine (14 Mg/24 Hr) TRANSDERM (13:28)
[2017-05-08] MEDS ORDERED: DOCU-144 PO (13:28)
[2017-05-08] MEDS ORDERED: IBUP800T25 PO (13:28)
--- NOTE | 2017-05-08 16:22 | RADRPT ---
PROCEDURE: CT Chest without contrast. CLINICAL INDICATION: History smoking. Abnormal chest x-ray. Lung nodule. TECHNIQUE: CT scan of the chest without contrast was performed on a multidetector high-resolution CT scanner. Coronal and sagittal reformatted images were obtained from the axial source images. The total exam CTDI equals 12.12 mGy and the total exam DLP equals 465.32 mGy-cm. One or more of the following dose reduction techniques were used: - Automated exposure control. - Adjustment of the mA and/or kV according to patient size. - Use of iterative reconstruction technique. COMPARISON: CHEST 05/06/2017; CODY CHEST 02/27/2016 FINDINGS: Significant dense confluent atelectasis is seen in the posterior lung bases bilaterally. Mild scarr ing is seen in these regions as well. In addition, dense confluent atelectasis is seen in the left lingula. Linear band atelectasis is seen along the lateral periphery of the right upper lung just a djacent to the right major fissure. Bullous emphysematous COPD changes are seen within the upper heather ng regions bilaterally. There is no pneumothorax on either side. Small subpleural lymph nodes are seen along the right minor fissure, grossly benign in appearance. No definite mass lesion is seen t o indicate neoplasm. The central tracheobronchial tree is clear. The mediastinum is unremarkable without evidence for mass or lymphadenopathy. The vascular structur es of the mediastinum are normal in course and caliber. Aortic vascular calcifications and coronary artery calcifications are present. The heart size is normal without evidence for pericardial thick ening or effusion. The axillary regions, subpectoral regions, and supraclavicular regions are all unremarkable. The warner rrounding chest wall is unremarkable. Imaging obtained through the upper abdomen reveals no acute a bnormality. The gallbladder is surgically absent. The surrounding osseous structures are unremarka ble. No osteolytic or osteoblastic lesion is detected. IMPRESSION: 1. Significant dense confluent atelectasis within the lung bases bilaterally. 2. Additional dense confluent atelectasis in the inferior left lingula. 3. Linear band atelectasis / scarring in the inferior right upper lung. 4. Benign chronic senescent changes seen elsewhere throughout the study. RPTAT: HMJB .Sharad Gordon MD, MD Date Time Electronically viewed and signed by .Sharad Gordon MD, MD on 05/08/2017 16:22 .B/
== END 2017-05-08 16:51 | disposition home or self-care (01) | DRG 552 ==
LOC: E/R 10:51 → TEL 18:26
PROVIDERS: ADMIT Internal Medicine; ATTEND Internal Medicine
DX: M54.9 Dorsalgia, unspecified (principal); E87.0 Hyperosmolality and hypernatremia; E03.9 Hypothyroidism, unspecified; F17.200 Nicotine dependence, unspecified, uncomplicated; M25.519 Pain in unspecified shoulder; G89.29 Other chronic pain; N18.9 Chronic kidney disease, unspecified; F41.9 Anxiety disorder, unspecified; E87.5 Hyperkalemia
CPT/HCPCS: 36415; 71010; 71250; 72100; 80048; 80053; 82550; 82553; 83690; 83735; 84100; 84443; 84484; 85025; 93005; 96374; 96375; J1644; J1885; J2270

== ENCOUNTER → 2017-05-15 | Outpatient (CLI) | payer OTHER ==
[~2017-05-15] VITALS: Ht 160 cm; Wt 67.3 kg
[~2017-05-15] MED LIST changes: -ALBU8.5H3 INH; -ALPR0.254 PO; -ASPI81TA3 PO; -ATOR10TA65 PO; -AZIT250T94 PO; -BACL10TA PO; -BISA10SU75 PR; -CETI10CA PO; +DOCU-144 PO; -DOCU-159 PO; -HYDR-906 PO; -IBUP-1542 PO; +IBUP800T25 PO; +Nicotine (14 Mg/24 Hr) TRANSDERM; -OXYC-183 PO; -OXYC-209 PO; -OXYC-281 PO; -OXYC-283 PO; +QUET50TA16 PO; -SENN-31 PO; -SENN-53 PO; -UDROBDM PO
[2017-05-15 14:55] VITALS: BP 92/50; PULSE 68; RESP 18; Ht 160 cm; Wt 67.3 kg
--- NOTE | 2017-05-15 15:37 | PN ---
Date/Time of Note Date/Time of Note DATE: 05/15/17 TIME: 15:31 Outpatient Progress Note Chief Complaint Left shoulder pain/back pain/anxiety/COPD/renal insufficiency HPI Left shoulder pain,/patient complained of left shoulder pain, and left arm pain , difficulty in raising, no fall, no injury, no tingling no numbness, patient was recently hospitalized at that time patient complained of right shoulder pain , Back pain/patient complained of back pain, patient has been taking Motrin, minimal relief, Anxiety/patient has anxiety, sometime insomnia, COPD/no cough expectoration wheezing, Renal insufficiency/no nausea vomiting or pruritus or oliguria, Review of Systems Const: No Fever, no chills, no Wt. loss, no Fatigue, normal appetite, no diaphoresis. Eyes: No pain, no discharge, no redness, no visual change, no foreign body. ENT: No pain, no bleeding, no congestion, no sore throat, no dysphagia, no discharge or rhinitis. Lymph: No adenopathy, no tender nodes, no lymphedema. Resp: No SOB, no cough, no sputum, no wheezing, no chest pain. CV: No chest pain, no palpitaions, no KHOURY, no PND, no edema. GI: Normal appetite, no pain, no nausea, no vomiting, no diarrhea, no blood, no constipation. : No frequency, no urgency, no dysuria, no hematuria, no flank pain, no discharge, no bleeding. Musc: Left shoulder pain and arm pain, mild to moderate back pain, and neck pain , no knee pain, mild restriction of left shoulder movement secondary to discomfort, Skin: No rash, no skin lesions, no erythema, no laceration, no bruising, no pruritus. Neuro: No GTZ, no dizziness, no syncope, no seizure, no focal-weakness. Endo: No polyuria, no polydypsia, no dry-skin, no temp-intolerance. Psych: No hallucinations, no depression, no anxiety, no suicidal ideation. Ext: No edema, no pain, no ulcer, no weakness. Physical Exam Vital Signs Date Time Temp Pulse Resp B/P Pulse Ox O2 Delivery O2 Flow Rate FiO2 05/15/17 14:55 97.9 68 18 92/50 98 Room Air General Appearance: A 61 year-old female who appears well-developed, well- nourished, in no acute distress. HEENT: Head normocephalic, atraumatic. Pupils equal, round, reactive to light and accommodate. Sclerae are no jaundice. Nasal turbinates pink without erythema or nasal discharge. Mucous membranes pink and moist without lesions. Oropharynx clear without any exudate or discharge. NECK: Supple. Trachea midline, No thyromegaly, No cervical lymphadenopathy, No mass, No carotid bruits, No JVD, Carotid pulses 2+ bilaterally. PULMONARY: Clear to auscultaion bilaterally, No retractions, Chest expansion symmetric bilaterally, no rales, no ronchi, no dulness on percussion. CARDIAC: Normal SI and S2, Regular rate and rythm, no murmur, gallop, or rub. GASTROINTESTINAL: Abdomen is soft, non-tender, Non Rigid, No distention, Positive bowel sounds x4 quadrants, Liver normal. SKIN: Warm, dry, no rash, no bruise, no echmosis. EXTREMITIES: Bilateral lower extremities normal, no edema, no phlabitus, pulse palpable, no contracture. MUSCULOSKELETAL: Spine Normal, Non-tender, left shoulder discomfort, patient also has a back pain, and difficulty in walking, no swelling, no deformity, no clubbing, or cyanosis, the patient has no edema to bilateral lower extremities, dorsalis pedis pulses palpable bilaterally. NEUROLOGIC: The patient is awake, alert, oriented, responding to yes/no questions appropriately, moving all extremities, cranial nerve intact, normal strenght, normal power, normal coordination, normal gait. Allergies Coded Allergies: No Known Allergy (Unverified , 05/08/17) PMH Chronic back pain/right shoulder pain/mild renal insufficiency/left lower lung nodule/anxiety/recent admission with a hyponatremia and hyperkalemia Social Hx No smoking no drinking, Family Hx Noncontributory Patient History: Cardiac disorder 35 FATHER (MS) FH: cancer 34 MOTHER (BREAST CANCER WITH METASTASIS TO LIVER. FROM THE LIVER CANCER) Assessment/Plan Impression Left shoulder pain/patient was recently admitted with the right shoulder pain, Back pain Anxiety COPD Renal insufficiency Plan Patient education done about her condition and medication, patient advised to increase activity slowly, Fall precaution, use cane all the time, Patient encouraged to follow with the primary care physician, Patient complains of severe pain, and side effect of medication explained, will give Ultram 50 mg p.o. twice daily #30 Medications Home Meds Active Scripts Docusate Sodium* (Colace*) 100 Mg Capsule, 100 MG PO Q24H Y for CONSTIPATION, # 1 CAP Prov:ELADIA DAWSON MD 05/08/17 Ibuprofen* (Ibuprofen*) 800 Mg Tablet, 800 MG PO Q6H Y for MODERATE PAIN LEVEL 4 -6 for 14 Days, #30 TAB Prov:ELADIA DAWSON MD 05/08/17 [Nicotine (14 Mg/24 Hr)] 1 PATCH PATCH No Conflict Check, 1 PATCH TRANSDERM DAILY, #1 OTC Prov:ELADIA DAWSON MD 05/08/17 Reported Medications Quetiapine Fumarate* (Seroquel*) 50 Mg Tablet, 50 MG PO DAILY, TAB 05/06/17 Discontinued Reported Medications Alprazolam* (Xanax*) 2 Mg Tablet, 2 MG PO BID Y for ANXIETY, TAB 05/06/17 DANNY DODD MD May 15, 2017 15:37
== END | disposition home or self-care (01) ==
LOC: DCC 15:18
PROVIDERS: ATTEND Internal Medicine
DX: M25.512 Pain in left shoulder (principal); M54.9 Dorsalgia, unspecified; J44.9 Chronic obstructive pulmonary disease, unspecified; F41.9 Anxiety disorder, unspecified; N28.9 Disorder of kidney and ureter, unspecified

== ENCOUNTER 2017-05-30 11:32 | Outpatient (CLI) | payer OTHER ==
[~2017-05-30] VITALS: Ht 160 cm; Wt 71.4 kg
[2017-05-30 11:56] VITALS: BP 117/67; PULSE 74; RESP 18; Ht 160 cm; Wt 71.4 kg
--- NOTE | 2017-06-10 16:14 | PN ---
Date/Time of Note Date/Time of Note DATE: 06/10/17 TIME: 16:08 Outpatient Progress Note Chief Complaint Back pain/COPD/anxiety/renal insufficiency HPI Back pain/patient has a back pain, patient has been taking Motrin with some relief, patient was prescribed Ultram, no loss of bladder or bowel control, COPD/no cough expectoration wheezing, hemoptysis, no fever chill, Anxiety/patient has anxiety, sometimes difficulty in sleeping, very nervous and anxious Renal insufficiency/no nausea or vomiting, Review of Systems Const: No Fever, no chills, no Wt. loss, no Fatigue, normal appetite, no diaphoresis. Eyes: No pain, no discharge, no redness, no visual change, no foreign body. ENT: No pain, no bleeding, no congestion, no sore throat, no dysphagia, no discharge or rhinitis. Lymph: No adenopathy, no tender nodes, no lymphedema. Resp: No SOB, no cough, no sputum, no wheezing, no chest pain. CV: No chest pain, no palpitaions, no KHOURY, no PND, no edema. GI: Normal appetite, no pain, no nausea, no vomiting, no diarrhea, no blood, no constipation. : No frequency, no urgency, no dysuria, no hematuria, no flank pain, no discharge, no bleeding. Musc: Severe back pain, for long time, no neck pain, no knee pain, no restricted ROM. Skin: No rash, no skin lesions, no erythema, no laceration, no bruising, no pruritus. Neuro: No GTZ, no dizziness, no syncope, no seizure, no focal-weakness. Endo: No polyuria, no polydypsia, no dry-skin, no temp-intolerance. Psych: No hallucinations, no depression, patient very anxiety, no suicidal ideation. Ext: No edema, no pain, no ulcer, no weakness. Physical Exam General Appearance: A 61 year-old female who appears well-developed, well- nourished, in no acute distress. HEENT: Head normocephalic, atraumatic. Pupils equal, round, reactive to light and accommodate. Sclerae are no jaundice. Nasal turbinates pink without erythema or nasal discharge. Mucous membranes pink and moist without lesions. Oropharynx clear without any exudate or discharge. NECK: Supple. Trachea midline, No thyromegaly, No cervical lymphadenopathy, No mass, No carotid bruits, No JVD, Carotid pulses 2+ bilaterally. PULMONARY: Clear to auscultaion bilaterally, No retractions, Chest expansion symmetric bilaterally, no rales, bilateral few ronchi, no dulness on percussion. CARDIAC: Normal SI and S2, Regular rate and rythm, no murmur, gallop, or rub. GASTROINTESTINAL: Abdomen is soft, non-tender, Non Rigid, No distention, Positive bowel sounds x4 quadrants, Liver normal. SKIN: Warm, dry, no rash, no bruise, no echmosis. EXTREMITIES: Bilateral lower extremities , no edema, no phlabitus, pulse palpable, no contracture. MUSCULOSKELETAL: Spine Normal, Non-tender, Normal range of motion, No swelling, no deformity, no clubbing, or cyanosis, the patient has no edema to bilateral lower extremities, dorsalis pedis pulses palpable bilaterally. NEUROLOGIC: The patient is awake, alert, oriented, responding to yes/no questions appropriately, moving all extremities, cranial nerve intact, normal strenght, normal power, normal coordination, normal gait. Allergies Coded Allergies: No Known Allergy (Unverified , 05/08/17) PMH No change Social Hx No change Family Hx No change Patient History: Cardiac disorder 35 FATHER (PA) FH: cancer 34 MOTHER (BREAST CANCER WITH METASTASIS TO LIVER. FROM THE LIVER CANCER) Assessment/Plan Impression Back pain/COPD/anxiety/renal insufficiency Plan Patient education done about her condition, and medication, patient very demanding, and very abusive, patient demands more pain medication, Patient had been offered Ultram 50 mg 3 times daily, Patient also has slight wheezing, patient will be given albuterol 2 puffs p.o. 4 times daily, Patient also has back pain, and patient wanted cane, will authorize walking cane , Patient to follow with the primary care physician, and patient to follow with the pain management, Patient very high risk for repeated admission, because of pain seeking behavior, Medications Home Meds Active Scripts Docusate Sodium* (Colace*) 100 Mg Capsule, 100 MG PO Q24H Y for CONSTIPATION, # 1 CAP Prov:ELADIA DAWSON MD 05/08/17 Ibuprofen* (Ibuprofen*) 800 Mg Tablet, 800 MG PO Q6H Y for MODERATE PAIN LEVEL 4 -6 for 14 Days, #30 TAB Prov:ELADIA DAWSON MD 05/08/17 [Nicotine (14 Mg/24 Hr)] 1 PATCH PATCH No Conflict Check, 1 PATCH TRANSDERM DAILY, #1 OTC Prov:ELADIA DAWSON MD 05/08/17 Reported Medications Quetiapine Fumarate* (Seroquel*) 50 Mg Tablet, 50 MG PO DAILY, TAB 05/06/17 DANNY DODD MD Jun 10, 2017 16:14
== END 2017-05-30 17:00 | disposition home or self-care (01) ==
LOC: DCC 11:32
PROVIDERS: ATTEND Internal Medicine
DX: M54.9 Dorsalgia, unspecified (principal); J44.9 Chronic obstructive pulmonary disease, unspecified; F41.9 Anxiety disorder, unspecified; N28.9 Disorder of kidney and ureter, unspecified
CPT/HCPCS: G0463

== ENCOUNTER 2018-04-08 16:02 | Emergency (ER) | END 2018-04-08 18:25 | disposition home or self-care (01) ==

== ENCOUNTER 2018-04-11 23:33 | Emergency (ER) | END 2018-04-12 02:35 | disposition home or self-care (01) ==

== ENCOUNTER 2018-09-06 04:26 | Emergency (ER) | payer OTHER ==
[~2018-09-06] VITALS: Ht 160 cm; Wt 68.2 kg
[~2018-09-06 04:26] MED LIST changes: +HYDR-4011 PO; +IBUP-1544 PO; -IBUP800T25 PO; +QUET50TA PO; -QUET50TA16 PO
[2018-09-06 04:31] VITALS: Ht 160 cm; Wt 68.2 kg
[2018-09-06] MEDS ORDERED: DEXAMETHASONE 10 MG/ML 1 ML INJ IM ONE (05:00)
[2018-09-06] MEDS ORDERED: OXYCODONE/ACETAMINOPHEN (10/325) TAB PO ONE (05:00)
[2018-09-06] MEDS ORDERED: HYDROCODONE/APAP (10/325) TAB PO ONE (05:00)
--- NOTE | 2018-09-06 05:19 | ERD ---
ER Documentation Chief Complaint Chief Complaint yobany leg pain and back pain for months. worsened last few days. HPI This is a 63-year-old female who presents here in the emergency department with complaints of bilateral leg pain that starts from her lower back. Stated that she has laminectomy previously. She also stated she has history of COPD. Stated that Percocet works better for her pain. Stated that she has this pain for a very long time. She also stated that she does not have any abdominal pain and urinary symptoms. She strongly refused diagnostic tests. Stated that she just need a medicine to relieve her pain. LMP: Unknown. Denies headache, head injury, loss of consciousness, dizziness, neck pain, neck stiffness, throat pain, difficulty swallowing, difficulty breathing lying flat, shoulder pain, chest pain, abdominal pain, nausea, vomiting, constipation, diarrhea, urinary symptoms, or possibility being , loss of bowel and bladder control, trauma, injury, falls, difficulty walking due to pain, numbness or tingling sensation, calf pain, recent travel, recent major surgery in the last 3 weeks, calf pain, recent long travel, recent exposure to any illness, recent antibiotic use in the last 3 months, fever, chills, seizures. Past medical history: Chronic pain. COPD. Surgical history: Laminectomy. Social: Denies smoking, use of alcoholic beverages, use of illegal drugs. ROS All systems reviewed and are negative except as per history of present illness. Medications Home Meds Active Scripts Hydrocodone/Acetaminophen ([place] 10-325 Tablet) 1 Each Tablet, 1 TAB PO Q6H PRN for PAIN, #5 TAB Prov:NUBIA RAY 09/06/18 Hydrocodone/Acetaminophen ([place] 5-325 Tablet) 1 Each Tablet, 1 TAB PO Q6H PRN for PAIN, #20 TAB Prov:TARAN OSBORNE 04/08/18 Docusate Sodium* (Colace*) 100 Mg Capsule, 100 MG PO Q24H PRN for CONSTIPATION, #1 CAP Prov:ELADIA DAWSON MD 05/08/17 Ibuprofen* (Ibuprofen*) 800 Mg Tablet, 800 MG PO Q6H PRN for MODERATE PAIN LEVEL 4-6 for 14 Days, #30 TAB Prov:ELADIA DAWSON MD 05/08/17 [Nicotine (14 Mg/24 Hr)] 1 PATCH PATCH No Conflict Check, 1 PATCH TRANSDERM DAILY, #1 OTC Prov:ELADIA DAWSON MD 05/08/17 Reported Medications Quetiapine Fumarate* (Seroquel*) 50 Mg Tablet, 50 MG PO DAILY, TAB 05/06/17 Allergies Allergies: Coded Allergies: No Known Allergy (Unverified , 04/08/18) PMhx/Soc History of Surgery: Yes (laminectomy, cholecystectomy) Anesthesia Reaction: No Hx Neurological Disorder: Yes (ANXIETY) Hx Respiratory Disorders: Yes (COPD) Hx Cardiac Disorders: No Hx Psychiatric Problems: No Hx Miscellaneous Medical Probl: No Hx Alcohol Use: No Hx Substance Use: No Hx Tobacco Use: No Smoking Status: Current some day smoker Physical Exam Vitals Vital Signs Date Temp Pulse Resp B/P (MAP) Pulse Ox O2 O2 Flow FiO2 Time Delivery Rate 09/06/18 98.3 71 20 101/59 95 Room Air 06:08 (73) 09/06/18 97.0 82 20 147/80 97 04:31 (102) Physical Exam Examined with female grain sampler. Const: No acute distress Head: Atraumatic Eyes: Normal Conjunctiva ENT: Normal External Ears, Nose and Mouth. Neck: Full range of motion. No meningismus. Resp: Clear to auscultation bilaterally Cardio: Regular rate and rhythm, no murmurs Abd: Soft, non tender, non distended. Normal bowel sounds Skin: No petechiae or rashes Back: No midline or flank tenderness. Bilateral straight leg test are positive. Bilateral cross straight leg test is positive. No saddle anesthesia. C-spine/T-spine/L-spine are in midline with no obvious deformity/bulging/point of tenderness/discoloration. No calf tenderness bilaterally. No neurovascular deficits. Ext: No cyanosis, or edema Neur: Awake and alert. No neurological deficits. Psych: Normal Mood and Affect Results 24 hrs Current Medications Medications Dose Sig/Chun Start Time Status Last (Trade) Ordered Route PRN Stop Time Admin Dose Reason Admin Oxycodone/ 1 tab ONCE ONCE 09/06/18 DC Acetaminophen PO 05:00 (Endocet 09/06/18 (10/ 325)) 05:00 10 mg ONCE ONCE 09/06/18 DC 09/06/18 Dexamethasone IM 05:00 05:01 (Decadron) 09/06/18 05:01 1 tab ONCE ONCE 09/06/18 DC 09/06/18 Acetaminophen PO 05:00 05:01 / 09/06/18 Hydrocodone 05:01 Bitart ([place]ett ()) Procedures/MDM Diagnostic tests: Patient is strongly refusing urinalysis, diagnostic tests. Stated that she needs pain medicine for this. She is requesting steroid shot. Treatment: Dexamethasone IM. [place]ett p.o. Re-evaluation: No saddle anesthesia. Discussed with my supervising physician, Dr. Earnest Frank who agreed my medical decision making. Differential diagnosis I have low suspicion for nephrolithiasis, pyelonephritis, obstructing kidney stone, AAA, cauda equina syndrome, DVT, fracture, cellulitis. Final diagnosis: Chronic pain. Prescription: [place] p.o. Follow-up with PCP in the next 24-48 hours. Follow-up with pain specialist in the next 24-48 hours. Come back here in the emergency department for any new symptoms or any worsening symptoms. All questions and concerns were answered. Patient and family members verbalized understanding and agreed with plan of care. Hemodynamically stable on discharge. Departure Diagnosis: Primary Impression: Chronic leg pain Additional Impression: Chronic back pain Condition: Stable Additional Instructions: Follow-up with PCP in the next 24-48 hours. Follow-up with pain specialist in the next 24-48 hours. Come back here in the emergency department for any new symptoms or any worsening symptoms. NUBIA RAY Sep 06, 2018 05:19
[2018-09-06] MEDS ORDERED: HYDR-3980 PO (05:31)
[2018-09-06 06:08] VITALS: BP 101/59; PULSE 71; RESP 20
== END 2018-09-06 06:10 | disposition home or self-care (01) ==
LOC: FTE 04:26
DX: M79.604 Pain in right leg (principal); J44.9 Chronic obstructive pulmonary disease, unspecified; F17.210 Nicotine dependence, cigarettes, uncomplicated; M79.605 Pain in left leg
CPT/HCPCS: 96372; J1100; Z7502; Z7610

== ENCOUNTER 2018-09-27 03:29 | Emergency (ER) | payer OTHER ==
[~2018-09-27] VITALS: Wt 70.5 kg
[~2018-09-27 03:29] MED LIST changes: +HYDR-3980 PO
[2018-09-27] MEDS ORDERED: KETOROLAC 30 MG INJ IM STA (04:20)
--- NOTE | 2018-09-27 04:23 | ERD ---
ER Documentation Chief Complaint Chief Complaint BILAT HIP PAIN X'S 3 DAYS HPI This is a 63-year-old female who presents to emerge department with complaints of chronic lower back pain. Patient is insisting dexamethasone. Denies headache, head injury, loss of consciousness, dizziness, neck pain, neck stiffness, throat pain, difficulty swallowing, difficulty breathing lying flat, shoulder pain, chest pain, abdominal pain, nausea, vomiting, constipation, diarrhea, urinary symptoms, or possibility being , loss of bowel and bladder control, trauma, injury, falls, difficulty walking due to pain, numbness or tingling sensation, calf pain, recent travel, recent major surgery in the last 3 weeks, calf pain, recent long travel, recent exposure to any illness, recent antibiotic use in the last 3 months, fever, chills, seizures. Past medical history: COPD. Chronic back pain. Surgical history: Social: Denies smoking, use of alcoholic beverages, use of illegal drugs. ROS All systems reviewed and are negative except as per history of present illness. Medications Home Meds Active Scripts Omeprazole* (Omeprazole*) 40 Mg Capsule.dr, 40 MG PO DAILY, #30 CAP Prov:PASILABANRIVERAAR F 09/27/18 Naproxen* (Naprosyn*) 500 Mg Tablet, 500 MG PO BID PRN for PAIN AND/OR INFLAMMATION, #30 TAB Prov:RIVERA RAYAR F 09/27/18 Hydrocodone/Acetaminophen ([place] 10-325 Tablet) 1 Each Tablet, 1 TAB PO Q6H PRN for PAIN, #5 TAB Prov:PASILABANRIVERAAR F 09/06/18 Hydrocodone/Acetaminophen ([place] 5-325 Tablet) 1 Each Tablet, 1 TAB PO Q6H PRN for PAIN, #20 TAB Prov:TARAN OSBORNE 04/08/18 Docusate Sodium* (Colace*) 100 Mg Capsule, 100 MG PO Q24H PRN for CONSTIPATION, #1 CAP Prov:ELADIA DAWSON MD 05/08/17 Ibuprofen* (Ibuprofen*) 800 Mg Tablet, 800 MG PO Q6H PRN for MODERATE PAIN LEVEL 4-6 for 14 Days, #30 TAB Prov:ELADIA DAWSON MD 05/08/17 [Nicotine (14 Mg/24 Hr)] 1 PATCH PATCH No Conflict Check, 1 PATCH TRANSDERM DAILY, #1 OTC Prov:ELADIA DAWSON MD 05/08/17 Reported Medications Quetiapine Fumarate* (Seroquel*) 50 Mg Tablet, 50 MG PO DAILY, TAB 05/06/17 Allergies Allergies: Coded Allergies: No Known Allergy (Unverified , 04/08/18) PMhx/Soc History of Surgery: Yes (laminectomy, cholecystectomy) Anesthesia Reaction: No Hx Neurological Disorder: Yes (ANXIETY) Hx Respiratory Disorders: Yes (COPD) Hx Cardiac Disorders: No Hx Psychiatric Problems: No Hx Miscellaneous Medical Probl: No Hx Alcohol Use: No Hx Substance Use: No Hx Tobacco Use: No Physical Exam Vitals Physical Exam Const: No acute distress Head: Atraumatic Eyes: Normal Conjunctiva ENT: Normal External Ears, Nose and Mouth. Neck: Full range of motion. No meningismus. Resp: Clear to auscultation bilaterally Cardio: Regular rate and rhythm, no murmurs Abd: Soft, non tender, non distended. Normal bowel sounds Skin: No petechiae or rashes Back: No midline or flank tenderness. No CVA tenderness. Positive bilateral straight leg test. No calf tenderness bilaterally. No edema on lower extremities. No neurovascular deficits. Ext: No cyanosis, or edema Neur: Awake and alert. No neurological deficits. Psych: Normal Mood and Affect Results 24 hrs Current Medications Medications Dose Sig/Chun Start Time Status Last (Trade) Ordered Route PRN Stop Time Admin Dose Reason Admin Ketorolac 30 mg ONCE STAT 09/27/18 DC 09/27/18 Tromethamine IM 04:20 04:29 (Toradol) 09/27/18 04:21 Famotidine 40 mg ONCE ONCE 09/27/18 DC 09/27/18 (Pepcid) PO 04:30 04:29 09/27/18 04:31 10 mg ONCE ONCE 09/27/18 DC 09/27/18 Dexamethasone IM 05:00 04:43 (Decadron) 09/27/18 05:00 Procedures/MDM Diagnostic tests: Clinical exam. Patient is strongly refusing urinalysis and/or other diagnostic tests. Treatment: Toradol IM. Pepcid p.o. Dexamethasone. Re-evaluation: Denies pain. Sensation is intact on bilateral lower extremities. No neurovascular deficits. Differential diagnosis I have low suspicion for AAA, bowel obstructions, septic stone, nephrolithiasis, pyelonephritis, UTI. Final diagnosis: Chronic back pain. Prescription: Naprosyn. Omeprazole. Follow-up with PCP in the next 24-48 hours. Come back here in the emergency department for any new symptoms or any worsening symptoms. All questions and concerns were answered. Patient and family members verbalized understanding and agreed with plan of care. Hemodynamically stable on discharge. Departure Diagnosis: Primary Impression: Chronic back pain Condition: Stable Additional Instructions: Follow-up with PCP in the next 24-48 hours. Come back here in the emergency department for any new symptoms or any worsening symptoms. NUBIA RAY Sep 27, 2018 04:23
[2018-09-27] MEDS ORDERED: OMEP40CA6 PO (04:24)
[2018-09-27] MEDS ORDERED: NAPR-985 PO (04:24)
[2018-09-27] MEDS ORDERED: FAMOTIDINE 20 MG TAB PO ONE (04:30)
[2018-09-27 04:57] VITALS: BP 148/76; PULSE 83; RESP 18
[2018-09-27] MEDS ORDERED: DEXAMETHASONE 10 MG/ML 1 ML INJ IM ONE (05:00)
[2018-10-08] MEDS ORDERED: IBUP-1561 PO (23:44)
== END 2018-09-27 04:57 | disposition home or self-care (01) ==
LOC: FTE 03:29
DX: M54.5 Low back pain (principal); J44.9 Chronic obstructive pulmonary disease, unspecified
CPT/HCPCS: 96372; J1100; J1885; Z7502; Z7610

== ENCOUNTER 2018-10-02 16:50 | Emergency (ER) | payer OTHER ==
[~2018-10-02] VITALS: Wt 72.5 kg
[~2018-10-02 16:50] MED LIST changes: +NAPR-985 PO; +OMEP40CA6 PO
[2018-10-02 16:52] VITALS: BP 122/69; PULSE 100; RESP 19
[2018-10-02] MEDS ORDERED: KETOROLAC 60 MG INJ IM STA (17:38)
[2018-10-02] MEDS ORDERED: IBUP800T48 PO (17:40)
[2018-10-02] MEDS ORDERED: METH750T93 PO (17:40)
[2018-10-02] MEDS ORDERED: METHOCARBAMOL 750 MG TAB PO ONE ×2 (17:44→18:00)
--- NOTE | 2018-10-02 17:54 | ERD ---
ER Documentation Chief Complaint Chief Complaint bib self, cc: left leg pain, breakthrough pain, HPI 63-year-old female with history of laminectomy and chronic back pain and chronic leg pain present ED with exacerbation of the pain in the left thigh. Described pain as constant, aching, and throbbing. She has appointment with her PCP in 3 days, and was told to come to the ER if her pain becomes unbearable. Patient states that she had received a nerve block in July without improvement of pain. She takes "everything I can get my hands on" for pain at home, without improvement. Denies recent trauma. Denies fever or chills. ROS All systems reviewed and are negative except as per history of present illness. Medications Home Meds Active Scripts Methocarbamol* (Robaxin*) 750 Mg Tablet, 750 MG PO Q6H PRN for MUSCLE SPASMS, #20 TAB Prov:SHAWN WASHINGTON. BOILER MECHANIC 10/02/18 Ibuprofen* (Motrin*) 800 Mg Tab, 800 MG PO Q6H PRN for PAIN AND OR ELEVATED TEMP, #30 TAB Prov:SHAWN WASHINGTON. BOILER MECHANIC 10/02/18 Omeprazole* (Omeprazole*) 40 Mg Capsule.dr, 40 MG PO DAILY, #30 CAP Prov:PASILABANRIVERAAR F 09/27/18 Naproxen* (Naprosyn*) 500 Mg Tablet, 500 MG PO BID PRN for PAIN AND/OR INFLAMMATION, #30 TAB Prov:PASILARIVERA CASTAR F 09/27/18 Hydrocodone/Acetaminophen ([place] 10-325 Tablet) 1 Each Tablet, 1 TAB PO Q6H PRN for PAIN, #5 TAB Prov:PASILABANRIVERAAR F 09/06/18 Hydrocodone/Acetaminophen ([place] 5-325 Tablet) 1 Each Tablet, 1 TAB PO Q6H PRN for PAIN, #20 TAB Prov:INDIATARAN BENITEZ 04/08/18 Docusate Sodium* (Colace*) 100 Mg Capsule, 100 MG PO Q24H PRN for CONSTIPATION, #1 CAP Prov:ELADIA DAWSON MD 05/08/17 Ibuprofen* (Ibuprofen*) 800 Mg Tablet, 800 MG PO Q6H PRN for MODERATE PAIN LEVEL 4-6 for 14 Days, #30 TAB Prov:ELADIA DAWSON MD 05/08/17 [Nicotine (14 Mg/24 Hr)] 1 PATCH PATCH No Conflict Check, 1 PATCH TRANSDERM DAILY, #1 OTC Prov:ELADIA DAWSON MD 05/08/17 Reported Medications Quetiapine Fumarate* (Seroquel*) 50 Mg Tablet, 50 MG PO DAILY, TAB 05/06/17 Allergies Allergies: Coded Allergies: No Known Allergy (Unverified , 04/08/18) PMhx/Soc History of Surgery: Yes (laminectomy, cholecystectomy) Anesthesia Reaction: No Hx Neurological Disorder: Yes (ANXIETY) Hx Respiratory Disorders: Yes (COPD) Hx Cardiac Disorders: No Hx Psychiatric Problems: No Hx Miscellaneous Medical Probl: No Hx Alcohol Use: No Hx Substance Use: No Hx Tobacco Use: No Smoking Status: Never smoker Physical Exam Vitals Vital Signs Date Temp Pulse Resp B/P (MAP) Pulse Ox O2 O2 Flow FiO2 Time Delivery Rate 10/02/18 98.1 100 19 122/69 100 16:52 (86) Physical Exam General: Well-developed, well-nourished, conscious and coherent, in no distress Skin: Warm and dry without rash, good texture and turgor Head: Normocephalic without evidence of trauma Neck: Supple without meningismus or adenopathy. Carotids are equal. Trachea midline. No bruits or JVD Chest: Normal AP diameter. Good expansion without retractions. Nontender. Lungs are clear to auscultate bilaterally with good tidal volume Heart: Regular rate and rhythm. No murmur, rub, or gallops heard Back: Without spinal or CVA tenderness Extremities: Full range of motion. Good strength bilaterally. No erythema, ecchymosis, or edema. Peripheral pulses are intact. Sensation intact. Left quadriceps and IT band muscle tension. Neuro: Alert and oriented 4, GCS 15. Results 24 hrs Current Medications Medications Dose Sig/Chun Start Time Status Last (Trade) Ordered Route PRN Stop Time Admin Dose Reason Admin 1 tab ONCE ONCE 10/02/18 Acetaminophen PO 18:00 / 10/02/18 18:01 Hydrocodone Bitart ([place] (5/325)) Ketorolac 60 mg ONCE STAT 10/02/18 DC Tromethamine IM 17:38 (Toradol) 10/02/18 17:39 750 mg ONCE ONCE 10/02/18 Methocarbamol PO 18:00 (Robaxin) 10/02/18 18:01 Procedures/MDM 63-year-old female with history of chronic pain presents the ED with left leg pain for the last 3 days. On exam, she is noted to have a extremely tight muscles in her left quadriceps and left IT band. I suspect that her pain is due to muscle tension. I doubt fractures, dislocations, ligamentous injury. Based on her history, I do not think the pain is sciatic in nature. Patient does not have any midline spinal tenderness. I doubt spinal fracture, subluxation, or disc herniation. I doubt spinal epidural abscess, cauda equina syndrome. Patient's medical records reviewed. She has been seen in this ED multiple times for the similar complaints. Each time requesting pain medications. I advised patient that I will not be able to prescribe narcotic pain medications for her, as her pain is chronic in nature. She has a follow-up appointment with her PCP, advised her to consult with her PCP regarding pain management as well as physica l therapy. Meanwhile, advised patient to obtain massage to help relieve the muscle tension. I offered patient Toradol injection, patient initially refused. Patient then accepted Toradol injection, but also requests Jackson. Jackson 5/325 p.o. x1 given to the patient in the ED. Patient also given Robaxin p.o. intake. Patient states that she intends to return to the ED in a few hours if and that when her pain returns. Patient does exhibit drug-seeking behavior. Patient appears well, stable for discharge and outpatient management. Medical decision making shared with patient and family. Education provided to patient and family. Patient and family expressed understanding of the plan. Medications on discharge: Ibuprofen, Robaxin. Follow-up: Primary care provider in 2-3 days or return to ED if worse. Disclaimer: Inadvertent spelling and grammatical errors are likely due to EHR/dictation software use and do not reflect on the overall quality of patient care. Also, please note that the electronic time recorded on this note does not necessarily reflect the actual time of the patient encounter. Departure Diagnosis: Primary Impression: Chronic leg pain Laterality: left Qualified Codes: M79.605 - Pain in left leg; G89.29 - Other chronic pain Condition: Stable Patient Instructions: Managing Chronic Pain: Activity, Managing Chronic Pain: Therapies for Mind and Body Referrals: COMMUNITY CLINICS YOU HAVE RECEIVED A MEDICAL SCREENING EXAM AND THE RESULTS INDICATE THAT YOU DO NOT HAVE A CONDITION THAT REQUIRES URGENT TREATMENT IN THE EMERGENCY DEPARTMENT. FURTHER EVALUATION AND TREATMENT OF YOUR CONDITION CAN WAIT UNTIL YOU ARE SEEN IN YOUR DOCTORS OFFICE WITHIN THE NEXT 1-2 DAYS. IT IS YOUR RESPONSIBILITY TO MAKE AN APPOINTMENT FOR FOLOW-UP CARE. IF YOU HAVE A PRIMARY DOCTOR --you should call your primary doctor and schedule an appointment IF YOU DO NOT HAVE A PRIMARY DOCTOR YOU CAN CALL OUR PHYSICIAN REFERRAL HOTLINE AT IF YOU CAN NOT AFFORD TO SEE A PHYSICIAN YOU CAN CHOSE FROM THE FOLLOWING [facility] [address] [facility]. [facility] [address] [facility] [facility] [address] [facility] [facility] [address] [facility] [facility] [address] [facility]. [facility] [address] Additional Instructions: Call your primary care doctor TOMORROW for an appointment during the next 2-3 days.See the doctor sooner or return here if your condition worsens before your appointment time. SHAWN WASHINGTON NP Oct 02, 2018 17:54
[2018-10-02] MEDS ORDERED: HYDROCODONE/APAP (5/325) TAB PO ONE (18:00)
[2018-10-08] MEDS ORDERED: IBUP-1561 PO (23:44)
== END 2018-10-02 18:20 | disposition home or self-care (01) ==
LOC: FTE 16:50
DX: M79.605 Pain in left leg (principal); R40.2412 Glasgow coma scale score 13-15, at arrival to emergency department; J44.9 Chronic obstructive pulmonary disease, unspecified
CPT/HCPCS: 96372; J1885; Z7502; Z7610

== ENCOUNTER 2019-01-26 01:57 | Emergency (ER) | payer OTHER ==
[~2019-01-26 01:57] MED LIST changes: +IBUP-1561 PO; +IBUP800T48 PO; +METH750T93 PO
[2019-01-26 04:25] VITALS: BP 102/58; PULSE 77; RESP 18
--- NOTE | 2019-03-02 01:36 | ERD ---
ER Documentation Chief Complaint Chief Complaint Bilateral lower extremity swelling HPI Is a 89 female coming with bilateral lower extremity swelling for the past 2 days. Denies any fevers chills nausea vomiting shortness of breath. Denies any other current complaints. ROS All systems reviewed and are negative except as per history of present illness. Medications Home Meds Active Scripts Ibuprofen* (Motrin*) 400 Mg Tab, 400 MG PO Q8, #20 TAB Prov:MELI HERNÁNDEZ MD 10/08/18 Methocarbamol* (Robaxin*) 750 Mg Tablet, 750 MG PO Q6H PRN for MUSCLE SPASMS, #20 TAB Prov:SHAWN WASHINGTON. ANALYTICS DIRECTOR 10/02/18 Ibuprofen* (Motrin*) 800 Mg Tab, 800 MG PO Q6H PRN for PAIN AND OR ELEVATED TEMP, #30 TAB Prov:SHAWN WASHINGTON. ANALYTICS DIRECTOR 10/02/18 Omeprazole* (Omeprazole*) 40 Mg Capsule.dr, 40 MG PO DAILY, #30 CAP Prov:NUBIA RAY F 09/27/18 Naproxen* (Naprosyn*) 500 Mg Tablet, 500 MG PO BID PRN for PAIN AND/OR INFLAMMATION, #30 TAB Prov:NUBIA RAY F 09/27/18 Hydrocodone/Acetaminophen ([place] 10-325 Tablet) 1 Each Tablet, 1 TAB PO Q6H PRN for PAIN, #5 TAB Prov:NUBIA RAY F 09/06/18 Hydrocodone/Acetaminophen ([place] 5-325 Tablet) 1 Each Tablet, 1 TAB PO Q6H PRN for PAIN, #20 TAB Prov:TARAN OSBORNE 04/08/18 Docusate Sodium* (Colace*) 100 Mg Capsule, 100 MG PO Q24H PRN for CONSTIPATION, #1 CAP Prov:ELADIA DAWSON MD 05/08/17 Ibuprofen* (Ibuprofen*) 800 Mg Tablet, 800 MG PO Q6H PRN for MODERATE PAIN LEVEL 4-6 for 14 Days, #30 TAB Prov:ELADIA DAWSON MD 05/08/17 [Nicotine (14 Mg/24 Hr)] 1 PATCH PATCH No Conflict Check, 1 PATCH TRANSDERM DAILY, #1 OTC Prov:ELADIA DAWSON MD 8/31/17 Reported Medications Quetiapine Fumarate* (Seroquel*) 50 Mg Tablet, 50 MG PO DAILY, TAB 05/06/17 Allergies Allergies: Coded Allergies: No Known Allergy (Unverified , 04/08/18) PMhx/Soc History of Surgery: Yes (laminectomy, cholecystectomy) Anesthesia Reaction: No Hx Neurological Disorder: Yes (ANXIETY) Hx Respiratory Disorders: Yes (COPD) Hx Cardiac Disorders: No Hx Psychiatric Problems: No Hx Miscellaneous Medical Probl: No Hx Alcohol Use: No Hx Substance Use: No Hx Tobacco Use: No Physical Exam Vitals Vital signs stable Physical Exam Const: No acute distress Head: Atraumatic Eyes: Normal Conjunctiva ENT: Normal External Ears, Nose and Mouth. Neck: Full range of motion. No meningismus. Resp: Clear to auscultation bilaterally Cardio: Regular rate and rhythm, no murmurs Abd: Soft, non tender, non distended. Normal bowel sounds Skin: No petechiae or rashes Back: No midline or flank tenderness Ext: No cyanosis, or edema Neur: Awake and alert Psych: Normal Mood and Affect Results 24 hrs Laboratory Tests Test 01/26/19 02:20 White Blood Count 8.4 10^3/ul Red Blood Count 2.93 10^6/ul Hemoglobin 9.6 g/dl Hematocrit 29.1 % Mean Corpuscular Volume 99.3 fl Mean Corpuscular Hemoglobin 32.8 pg Mean Corpuscular Hemoglobin Concent 33.0 g/dl Red Cell Distribution Width 14.6 % Platelet Count 243 10^3/UL Mean Platelet Volume 9.0 fl Immature Granulocytes % 0.700 % Neutrophils % 62.1 % Lymphocytes % 25.6 % Monocytes % 7.3 % Eosinophils % 3.9 % Basophils % 0.4 % Nucleated Red Blood Cells % 0.0 /100WBC Immature Granulocytes # 0.060 10^3/ul Neutrophils # 5.2 10^3/ul Lymphocytes # 2.2 10^3/ul Monocytes # 0.6 10^3/ul Eosinophils # 0.3 10^3/ul Basophils # 0.0 10^3/ul Nucleated Red Blood Cells # 0.0 10^3/ul Sodium Level 143 mmol/L Potassium Level 3.1 mmol/L Chloride Level 107 mmol/L Carbon Dioxide Level 27 mmol/L Anion Gap 9 Blood Urea Nitrogen 8 mg/dl Creatinine 0.86 mg/dl Est Glomerular Filtrat Rate mL/min > 60 mL/min Glucose Level 104 mg/dl Calcium Level 8.3 mg/dl Total Bilirubin 0.4 mg/dl Direct Bilirubin 0.00 mg/dl Indirect Bilirubin 0.4 mg/dl Aspartate Amino Transf (AST/SGOT) 24 IU/L Alanine Aminotransferase (ALT/SGPT) 24 IU/L Alkaline Phosphatase 108 IU/L Troponin I < 0.012 ng/ml Total Protein 6.3 g/dl Albumin 3.3 g/dl Globulin 3.00 g/dl Albumin/Globulin Ratio 1.10 Procedures/MDM EKG: Rate/Rhythm: [Normal Sinus Rhythm] QRS, ST, T-waves: [No changes consistent w/ acute ischemia] Impression: [No evidence of ischemia or arrhythmia] Chest X-ray 1V Interpreted by me: Soft Tissue: No acute abnormalities Bones: No acute abnormalities Mediastinum/Cardiac Silhouette/Lungs: [No acute abnormalities] Medical decision makin female with bilateral lower extremity edema. No evidence CHF. Well-appearing. Patient be discharged home to follow-up with primary care physician. Return immediately for chest pain nausea vomiting fevers chills or shortness of breath. Departure Diagnosis: Primary Impression: Swelling Condition: Stable Patient Instructions: Peripheral Edema, Bilateral SRAVAN TERAN Mar 02, 2019 01:36
== END 2019-01-26 04:40 | disposition home or self-care (01) ==
LOC: E/R 01:57
DX: M79.89 Other specified soft tissue disorders (principal); J44.9 Chronic obstructive pulmonary disease, unspecified
CPT/HCPCS: 80053; 84484; 85025; 93005; Z7502